=== PATIENT | male | born 1945 | race Caucasian/White ===

== ENCOUNTER → 2020-12-21 13:11 | Outpatient (CLI) | payer MEDICARE, SELFPAY ==
--- NOTE | 2020-12-21 | DI.RAD.S_ITS ---
PROCEDURE: XR HIP W PEL IF DONE RT 2V INDICATIONS: Pain in right hip TECHNIQUE: AP pelvis with lateral view(s) of the right hip(s). COMPARISON: None. FINDINGS: Bones: No acute fracture. Scattered degenerative subchondral sclerosis and spurring. Mild to moderate narrowing of the right hip joint space. Soft tissues: The visualized bowel gas pattern is normal. No suspicious soft tissue calcifications. 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 on 12/21/2020 at 14:57 Approved by: Bryan Doe M.D. on 12/21/2020 at 14:58
== END ==
PROVIDERS: PCP Family Medicine; Referring Provider Family Medicine; Visit Provider Family Medicine
DX: M25.551 Pain in right hip (principal); M16.11 Unilateral primary osteoarthritis, right hip
CPT/HCPCS: 73502

== ENCOUNTER → 2022-01-13 11:27 | Outpatient (CLI) | payer MEDICARE, SELFPAY ==
--- NOTE | 2022-01-13 | DI.US.S_ITS ---
PROCEDURE: US ABDOMEN LIMITED INDICATIONS: Abnormal serum enzyme level, unspecified TECHNIQUE: Real-time focused scanning was performed of the abdomen, with image documentation. COMPARISON: [facility], US, ABDOMEN COMPLETE, 10/19/2006, 10:57. FINDINGS: The liver demonstrates enlarged size. The liver demonstrates generalized moderately increased echogenicity. This decreases ultrasound sensitivity for detection of hepatic masses. The liver demonstrates a scalloped contour. A potential shadowing stone can be seen. The gallbladder wall is not thickened, measuring 3 mm or less. No specific pericholecystic fluid is seen. The sonographic Morgan sign is negative. There is no biliary dilatation, the common bile duct measures 3-4 mm. The pancreas demonstrates a nonspecific edematous appearance. The IVC is patent. IMPRESSION: The liver demonstrates increased echogenicity. This finding is nonspecific, yet it is most commonly attributed to fatty infiltration. However, differential diagnosis includes cirrhosis and fibrosis in this patient. Apparent gallstone, without additional sonographic signs of cholecystitis. Dictated by: Rosas Ortiz M.D. on 01/13/2022 at 11:53 Approved by: Rosas Ortiz M.D. on 01/13/2022 at 11:55
== END ==
PROVIDERS: PCP Family Medicine; Referring Provider Family Medicine; Visit Provider Family Medicine
DX: R74.9 Abnormal serum enzyme level, unspecified (principal)
CPT/HCPCS: 76705